=== PATIENT | male | born 1965 | race Caucasian/White ===

== ENCOUNTER 2018-02-04 16:11 | Emergency (ER) | payer OTHER ==
[~2018-02-04] VITALS: Ht 175.3 cm; Wt 138.3 kg
[2018-02-04 16:23] VITALS: BP 145/76
--- NOTE | 2018-02-04 17:12 | ED GENERAL ADULT ---
History of Present Illness General Chief Complaint: General Adult Stated Complaint: FLU LIKE SYMPTOMS Source: patient Exam Limitations: no limitations Vital Signs & Intake/Output Vital Signs & Intake/Output Vital Signs Date Time Temp Pulse Resp B/P B/P Pulse O2 O2 Flow FiO2 Mean Ox Delivery Rate 02/04 1754 Room Air 02/04 1623 97.7 77 18 145/76 96 Room Air Allergies Coded Allergies: No Known Allergies (02/04/18) Reconcile Medications Azithromycin (Zithromax) 250 MG TABLET 1 DP PO AD bronchitis 2 the first day followed by 1 for days 2-5 Benzonatate (Tessalon Perle) 100 MG CAPSULE 1 CAP PO TID PRN cough Triage Note: RECEIVED 52 YO MALE C/O FLU LIKE SYMPTOMS X 3 DAYS, OCCASIONAL PRODUCTIVE COUGH, INTERMITTENT FEVERS, NO C/O N/V/D. Triage Nurses Notes Reviewed? yes Onset: Gradual Duration: day(s): (3) Timing: remote history Injury Environment: home Severity: moderate Severity Numbers: 7 Modifying Factors: Improves With: medication (OTC MEDS, TYLENOL). HPI: Patient is a 52-year-old male with history of diabetes, hypertension presenting to the emergency department chief complaint of intermittently productive cough, malaise and chills has been going on for the past 3 days. Positive body aches. No sick contacts or recent travel. Has been taking [id number] cold medication with some relief. Denies chest pain or palpitations. No shortness of breath. Did not get the flu vaccine this year. Denies abdominal pain. No nausea vomiting or diarrhea. Has been eating and drinking well. (Melissa Cortez) Past History Travel History Traveled to [place] past 21 day No Medical History Any Pertinent Medical History? see below for history Neurological: NONE EENT: NONE Cardiovascular: hypertension Gastrointestinal: OBESITY Hepatic: NONE Renal: NONE Musculoskeletal: NONE Psychiatric: NONE Endocrine: diabetes Blood Disorders: NONE Cancer(s): NONE Surgical History Surgical History: non-contributory Psychosocial History What is your primary language Kazakh Tobacco Use: Current Daily Use Daily Tobacco Use Amount/Type: => 5 Cigarettes daily Family History Hx Contributory? No (Melissa Cortez) Review of Systems Review of Systems Constitutional: Reports: see HPI, chills, fever, malaise. Comments Review of systems: See HPI, All other systems negative. Constitutional, no weight loss HEENT: No visual changes Cardiovascular: No chest pain ,palpitation , orthopnea or ankle swelling Skin, no jaundice no rashes Respiratory: No dyspnea or hemoptysis GI: No nausea no vomiting : No dysuria No hematuria Muscle skeletal: no back pain, no neck pain, Neurologic: No numbness no confusion no headaches Psych: No stress anxiety or depression,. Heme/endocrine: No bruising no bleeding no polyuria or polydipsia Immunology: No splenectomy or history of AIDS (Melissa Cortez) Physical Exam Physical Exam General Appearance: well developed/nourished, no apparent distress, alert, awake , comfortable Comments: Well-developed well-nourished person in no acute distress HEENT: Pupils equally round and reactive to light and accommodation. Nose is atraumatic. External auditory canal and Tympanic membranes clear. Pharynx is mildly erythematous, slight tonsillar enlargement bilaterally, weight 88 president, uvula midline. Clearing secretions without difficulty. No swelling or edema. Neck: Supple, no lymphadenopathy, normal range of motion without pain or tenderness Back: Nontender Cardiovascular: Regular rate and rhythms no murmurs rubs or gallops Respiratory: No respiratory distress.breath sounds clear to auscultation bilaterally Neuro: Alert oriented x3 Skin: No appreciable rash on exposed skin, skin is warm and dry. Psych: Mood and affect is normal, memory and judgment is normal. Core Measures ACS in differential dx? No CVA/TIA Diagnosis: No Sepsis Present: No Sepsis Focused Exam Completed? No (Melissa Cortez) Progress Differential Diagnoses I considered the following diagnoses in my evaluation of the patient: Influenza , strep, bronchitis, pneumonia, viral syndrome Plan of Care: Orders Procedure Date/time Status THROAT CULTURE W/QUICK STREP 02/04 1629 Active RAPID VIRAL INFLUENZA A 02/04 1619 Complete Microbiology 02/04 1631 NASOPHARYN: Influenza Virus A & B Rapid Smear - COMP INFLUENZA TYPE B Initial ED EKG: none (Melissa Cortez) Departure Departure Time of Disposition: 1726 Disposition: HOME OR SELF CARE Condition: Stable Clinical Impression Primary Impression: Influenza Secondary Impressions: Bronchitis Referrals: María Diallo (PCP/Family) Additional Instructions: follow up with your primary care doctor in 5-7 days. return for worsening symptoms or concerns. alternate motrin or tylenol as directed. increase fluids. take zpack as prescribed, take tessalon to help with cough. Departure Forms: Customer Survey General Discharge Information Prescriptions: Current Visit Scripts Azithromycin (Zithromax) 1 DP PO AD #6 TAB 2 the first day followed by 1 for days 2-5 Benzonatate (Tessalon Perle) 1 CAP PO TID PRN cough #30 CAP (Melissa Cortez) PA/EVENTS INTERN Co-Sign Statement Statement: ED Attending supervision documentation- [] I saw and evaluated the patient. I have also reviewed all the pertinent lab results and diagnostic results. I agree with the findings and the plan of care as documented in the PA's/EVENTS INTERN's documentation. [x] I have reviewed the ED Record and agree with the PA's/EVENTS INTERN's documentation. [] Additions or exceptions (if any) to the PAs/EVENTS INTERN's note and plan are summarized below: [] (Vinicio Ruffin DO) Critical Care Note Critical Care Note Critical Care Time: non-applicable (Melissa Cortez)
[2018-02-04] MEDS ORDERED: TESSALON PERLE100 M1 PO (17:40)
[2018-02-04] MEDS ORDERED: ZITHROMAX250 M2 PO (17:40)
== END 2018-02-04 17:59 ==
LOC: ERH 16:11
DX: J11.1 Influenza due to unidentified influenza virus with other respiratory manifestations (principal); J40 Bronchitis, not specified as acute or chronic; F17.210 Nicotine dependence, cigarettes, uncomplicated
CPT/HCPCS: 87804; 87804-59